=== PATIENT | female | born 1955 | race Caucasian/White ===

== ENCOUNTER 2016-09-02 09:14 | Outpatient (CLI) | payer OTHER ==
[~2016-09-02 09:14] MED LIST: ATENOLOL50 MG PO; COMPLERA; COZAAR50 MG PO; LEVAQUIN500 MG PO; MECLIZINE PO; [UNRECOGNIZED DRUG - OTHER] PO
--- NOTE | 2016-09-02 10:19 | DIAGNOSTIC IMAGING REPORT ---
PROCEDURE: XR CHEST 2 VIEW INDICATION: PRE OP TECHNIQUE: PA and lateral view. COMPARISON: Chest x-ray 08/21/2014 FINDINGS: Lungs are clear. Cardiovascular structures are normal. Bony thorax is unremarkable. IMPRESSION: 1. Negative chest.
== END 2016-09-02 23:00 ==
LOC: RT SRH 09:14
DX: Z01.818 Encounter for other preprocedural examination (principal); Z01.812 Encounter for preprocedural laboratory examination; Z01.810 Encounter for preprocedural cardiovascular examination; R00.1 Bradycardia, unspecified
CPT/HCPCS: 90004; 90074; 90100; 94060; 95059

== ENCOUNTER 2016-09-04 13:55 | Day surgery (SDC) | payer OTHER ==
--- NOTE | 2016-09-02 10:47 | HISTORY AND PHYSICAL ---
ADMITTED: 09/04/2016 CHIEF COMPLAINT: 1. Mass of the right long finger and trigger finger of the right long finger HISTORY OF PRESENT ILLNESS: This 61-year-old right-handed woman has had triggering of the right long finger for months on and off getting progressively worse now with locking occurring both during the day and at night. She also noted a mass about 4 mm across on the volar base of the finger. I had told her that the mass is likely benign and I could treat her trigger finger with a cortisone injection, but she said she wanted the mass removed and the trigger finger released at the same setting. She is pathologically frightened of having injections, but she said she can tolerate having an IV started. After explaining the risks and benefits of the surgical procedures of right long finger trigger finger release and excision of a mass of the right long finger, she consented to the procedure. MEDICAL/SURGICAL HISTORY: Past medical history: She has a history of hypertension on 4 medications. She has a history of hepatitis C, which was cured with treatment. She has a history of HIV, on which she has been stable without progression to AIDs and has been on the same medication Complera for at least the past 8 years. Past Surgical History: Includes the carpal tunnel release, bunion surgery, open reduction and internal fixation of the foot for fracture and the incision and drainage of a right distal forearm abscess in the past, and breast enhancement surgery. MEDICATIONS: 1. Amlodipine 5 mg daily. 2. Atenolol 50 mg daily. 3. Hydrochlorothiazide 25 mg daily. 4. Losartan 50 mg daily. 5. Complera 200 mg/25 mg/300 mg tablet daily. 6. Gabapentin 100 mg capsule at bedtime daily. 7. Aspirin 81 mg tablet daily. ALLERGIES: 1. SOCIAL HISTORY: FAMILY HISTORY: REVIEW OF SYSTEMS: She denies a history of seizure, stroke or syncope. She denies history of chest pain on exertion or irregular heartbeat or the need for heart surgery or having cardiac catheterization. She denies a history of congestive heart failure. She denies a history of tuberculosis or pneumonia. She denies a history of cirrhosis, although she had hepatitis C. Liver biopsies show stage II, hepatitis C has been stable. She denies history of peptic ulcer disease or colitis. She denies a history of kidney stones or kidney failure, or kidney infection. She denies a history of diabetes or thyroid disease. She denies a history of anemia or cancer. PHYSICAL EXAMINATION: GENERAL: Shows a well-nourished, well-developed woman in no acute distress. She is alert and oriented x3. NECK: Has no audible bruits and is painlessly supple. HEART: Without murmur, rub, or gallop. The rhythm is regular. LUNGS: Clear to auscultation with normal breath sounds. ABDOMEN: Without tenderness, masses, or organomegaly. EXTREMITIES: The right wrist has no swelling. There is a well-healed incision over the carpal tunnel. The distal half of the forearm has a volar scar of drainage of an abscess long ago, now well-healed without erythema and without draining sinus. The wrist has normal dorsiflexion, palmar flexion, supination and pronation. The right long finger has normal passive motion. There is a 4 mm mass on the volar surface of the right long finger at the level of the proximal flexion crease of the finger which is slightly mobile but seems attached to the flexor tendon sheath. The mass does not have a Tinel's sign. At this small size, it is hard to distinguish a fluctuant cyst from a solid mass. There is palpable and visible triggering of the finger and tenderness over the A1 aurelio of the flexor tendon sheath. IMPRESSION/PLAN: The patient understood the risks and benefits of the procedure and consented to the procedure of release of the right long trigger finger and excision of a mass of the right long finger.
[~2016-09-04] VITALS: Ht 175.3 cm; Wt 75.1 kg
--- NOTE | 2016-09-04 17:12 | Postoperative Progress Note ---
Postop Progress Note Preoperate Diagnosis: right long finger trigger finger, and mass right long tendon sheath Postoperative Diagnosis: same Surgeon: Henrry Weir MD Counter Help Surgeon: none Anesthesia: Conscious Sedation, [place] Block Findings: a ganglion cyst was growing on the flexor tendon sheath and was excised with a portion of the root on the flexor tendon sheath. Procedure: release of right long finger trigger finger and excision of ganglion cyst of tendon sheath Complications? No Condition: Good EBL: neglible Blood Administered: none Specimen(s) removed? Yes Specimen removed/disposition: portion of right long finger tendon sheath with ganglion cyst Grafts or Implants? No Graft/Implant type: none . (See nursing notes for details of grafts/implants)
[2016-09-04] MEDS ORDERED: OXYCODONE/ACETA1 TA1 PO (18:07)
--- NOTE | 2016-09-04 18:11 | Provider's Discharge Care Plan ---
Problem, Goal, Plan Problem List 1. Trigger finger of right hand Goals: Improve function Instructions: Follow up as directed, Take meds as directed 2. Ganglion cyst of flexor tendon sheath Goals: Improve function Instructions: Follow up as directed, Take meds as directed
[2016-09-04 18:30] VITALS: BP 119/80
--- NOTE | 2016-09-04 19:24 | OPERATIVE REPORT ---
DATE OF SURGERY: 09/04/2016 SURGEON: Henrry Weir MD PREOPERATIVE DIAGNOSIS: 1. Right long finger trigger finger and mass of the right long finger tendon sheath POSTOPERATIVE DIAGNOSIS: 1. Right long finger trigger finger and mass of the right long finger tendon sheath PROCEDURE PERFORMED: 1. Excision of mass of the right long finger tendon sheath and release of the right long finger trigger finger ANESTHESIA: IV block and conscious sedation. ESTIMATED BLOOD LOSS: Negligible. PATHOLOGY SPECIMEN: Ganglion cyst of tendon sheath with a portion of the tendon sheath itself. DRAINS: None. FLUIDS: Blood transfusion- None. COMPLICATIONS: None. SURGICAL TECHNIQUE: The patient was brought to the operating room, where an IV block was performed with IV lidocaine and the tourniquet was inflated to 275 mmHg. The arm was sterilely prepped, painted and draped. The incision for the trigger finger was marked off as a longitudinal incision from the distal flexion crease of the hand proximally over the tendon sheath for 1.5 cm. Skin was sharply divided with a knife and subcutaneous tissue dissected bluntly down to reveal the tendon sheath and the A1 aurelio. The A1 aurelio was cut under direct vision with a knife. Then attention was turned to the mass, which was distal to the proximal flexion crease of the long finger. An oblique incision was made across the flexion crease of the finger and skin hooks were used to elevate the subcutaneous tissue away from the digital nerves and tendon sheath. Then blunt dissection was used to outline the mass, which was apparently a ganglion cyst. The ganglion cyst was nicked to deflate it and this allowed greater visualization of the tissue behind the cyst. The cyst was lifted up with a hemostat and its root outlined on the tendon sheath. The affected tendon sheath was excised, removing the ganglion cyst. The wound was then closed with 5-0 interrupted nylon suture. Then 0.5% Marcaine 6 mL was injected around the incisions. A sterile dressing was placed upon the wound and the patient awakened and brought from the operating room in good condition.
== END 2016-09-04 21:50 | disposition home or self-care (01) ==
LOC: OR SRH 13:55 → SCU SRH 13:58 → OR SRH 15:30
PROVIDERS: Orthopaedic Surgery
PROC: 0LN70ZZ Release Right Hand Tendon, Open Approach (ICD-10-PCS; principal; 2016-09-04 15:30)
PROC: 0LB70ZZ Excision of Right Hand Tendon, Open Approach (ICD-10-PCS; principal; 2016-09-04 15:30)
DX: M65.331 Trigger finger, right middle finger (principal); M67.441 Ganglion, right hand; I10 Essential (primary) hypertension; Z72.0 Tobacco use; B20 Human immunodeficiency virus [HIV] disease; Z79.899 Other long term (current) drug therapy
CPT/HCPCS: 29229; 29240; 50004; 60001

== ENCOUNTER 2016-10-18 16:28 | Emergency (ER) | payer OTHER ==
[~2016-10-18 16:28] MED LIST changes: +OXYCODONE/ACETA1 TA1 PO
--- NOTE | 2016-10-18 17:18 | ED NURSING NOTES ---
Clinical Report - Nurses [facility] [address] [place] [address] 10/18/2016 16:29 Patient: FORTUNATO ARVIZU TRIAGE Acuity: LEVEL 3. Chief Complaint: MUSCLE ACHES. Alert. No acute distress. SEPSIS SCREEN: Sepsis Screen. Negative (no infection suspected/documented). --16:42 Kay Duenas R.N. 16:33 10/18/16. BP: 183/96. HR: 76. RR: 20. O2 saturation: 98% on room air. Temp: 98.8 F (oral). Pain level now: 01/11. --16:42 Kay Duenas R.N. Weight: 71.2 kg stated. Height/Length: 68 inches Per Patient. BMI: 23.9. --16:41 Kay Duenas R.N. Medications Atenolol Oral. --16:39 Kay Duenas R.N. Losartan Potassium Oral. --16:39 Kay Duenas R.N. AmLODIPine Besylate Oral. --16:40 Kay Duenas R.N. Medication/allergy information source: the patient. --16:42 Kay Duenas R.N. Allergies LIsinopril. (dry cough) --16:40 Kay Duenas R.N. Spironolactone. --16:41 Kay Duenas R.N. History Arrived by private vehicle. Historian: patient. Unaccompanied. Primary physician (Dr Praveen Garibay). Onset. (2 months ago). ( Pt reports pain that has moved from her hips to her knee to her elbow to her neck and now to her shoulder.). 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 PAST MEDICAL HX: The patient has had a hysterectomy. SOCIAL HX: Current every day light tobacco smoker (cigarette)- less than 1/2 a pack per day. Occasional alcohol use; consumes beer. No drug use. FALL RISK ASSESSMENT: Fall risk assessment completed. No fall risk identified. NUTRITIONAL RISK ASSESSMENT: The nutritional risk assessment revealed no deficiencies. FUNCTIONAL ASSESSMENT: Functional assessment: no impairments noted. LEARNING NEEDS ASSESSMENT: The learning needs assessment revealed no barriers. SKIN INTEGRITY ASSESSMENT: Skin integrity risk assessment completed. No skin integrity risk identified. --16:42 Kay Duenas R.N. PROBLEMS: Hepatitis. HIV Illness. Hypertension. --16:39 Kay Duenas R.N. ADDITIONAL SURGERIES: Breast Augmentation. Cystoscopy. Foot surgery. Hysterectomy. Oophorectomy. Tonsillectomy. --16:41 Kay Duenas R.N. Assessment GENERAL / NEURO / PSYCH: Alert. Oriented X 4. Appears in no acute distress. [place] Coma Scale: 15- eyes open spontaneously (4); best verbal response- oriented x 4 (5); best motor response- obeys commands (6). Patient appears calm and cooperative. RESPIRATORY: Respirations not labored. CVS: Capillary refill less than 2 seconds. GI / : Abdomen soft and nontender. SKIN: Mucous membranes are pink. Skin is warm and dry. --16:42 Kay Duenas R.N. Interventions ID band on patient. To treatment room. --16:42 Kay Duenas R.N. PHYSICAL ASSESSMENT 16:43 10/18/16. Ambulatory to room. GENERAL / NEURO / PSYCH: Alert. Oriented X 4. Appears in no acute distress. HEENT: Pupils equal, round and reactive to light. No facial asymmetry noted. Mucous membranes are pink. RESPIRATORY: Respirations not labored. CVS: Capillary refill less than 2 seconds. Pulses within normal limits. GI / : Abdomen soft and nontender. SKIN: Skin intact. Skin is warm and dry. Normal skin turgor. --16:43 Kay Duenas R.N. NURSING PROGRESS NOTES 16:43 10/18/16. Patient gowned. Two patient identifiers checked. Call light placed in reach. Side rails up x 1. Bed placed in lowest position. Brakes of bed on. Patient ready for evaluation- chart flagged and ED physician and COLLET MAKING MACHINE OPERATOR notified. --16:43 Kay Duenas R.N. 17:31 10/18/2016 Toradol (Ketorolac Tromethamine) IM 60 mg given. Given in the right gluteus ariane. Allergies verified and confirmed 5 rights. --17:31 Kay Duenas R.N. DISPOSITION / DISCHARGE Departure time: 17:55 Oct 18 2016. Condition at departure: improved and stable. No learning barriers present. Reviewed medication(s) side effects, precautions and dosing information. Prescription(s) given to the patient. Patient verbalized understanding. Written instructions provided in Yoruba. The patient was discharged by the nurse practitioner. She was discharged home. She left the Emergency Department ambulatory and via private vehicle. Patient driving. --18:28 Kay Duenas R.N. Locked/Released at 10/18/2016 18:28 by Kay Duenas R.N.
--- NOTE | 2016-10-18 17:18 | ED ORDER SUMMARY ---
..... Patient: FORTUNATO ARVIZU OrderSheet [facility] VisitID: [id number] [address] [place] [address] 61y, F Registration Date/Time: 10/18/2016 ORDER SHEET Weight: 71.2 kg (stated) Allergies: LIsinopril, Spironolactone GENERAL ORDERS: MEDICATION ORDERS: Toradol IM 60 mg (NOW) (17:11 10/18/2016 HBivens A.R.N.P.) (Ack 17:16 MWinterer R.N.) (17:31 MWinterer R.N.) IV FLUIDS: ORDER SHEET NOTES: [Electronically signed by Kay Duenas R.N. (18:28 10/18/2016)] [Electronically signed by Marissa Alvarado.R.N.P. (18:35 10/18/2016)] [Electronically locked/signed by Kay Duenas R.N. (18:28 10/18/2016)]
--- NOTE | 2016-10-18 17:18 | ED CLINICAL REPORT ---
Clinical Report - Physicians/Mid Levels [facility] [address] [place] [address] 10/18/2016 16:29 Patient: FORTUNATO ARVIZU Time Seen: 16:43; initial patient contact, initial documentation, patient care assumed. Arrived- By ambulance. Historian- patient. HISTORY OF PRESENT ILLNESS Chief Complaint: ( joint pain). At its maximum, severity described as severe. When seen in the E.D., severity described as severe. Modifying factors- worsened by movement. Not relieved by anything. This started about 2 months ago and is still present. It was abrupt in onset and has been intermittent. The patient has had muscle aches. (each episode is the same, joint swelling and pain, 1st episode was L knee, then R knee, then L hip, then R hip, then R elbow, and now R shoulder, states no one knows what it is, she wants more answers, she knows something is wrong, and she is hurting). Similar symptoms previously: Several times. ( this is 5th episode). Recent medical care: The patient was seen recently in the office and a clinic. ( says she went to [facility] and they told her we don't know what is wrong, gave rx nsaid, and no better, went to her infectious disease dr who does her blood work for hiv, and he did xrays of her hips and she has pending bone scan for osteopenia). REVIEW OF SYSTEMS No fever, difficulty breathing, chest pain or abdominal pain. No difficulty with ambulation. All systems otherwise negative, except as recorded above. PAST HISTORY See nurses notes. PROBLEMS: Hepatitis. HIV Illness. Hypertension. --16:39 Kay Duenas R.N. ADDITIONAL SURGERIES: Breast Augmentation. Cystoscopy. Foot surgery. Hysterectomy. Oophorectomy. Tonsillectomy. --16:41 Kay Duenas R.N. SOCIAL HISTORY Light tobacco smoker. Occasional alcohol use. No drug use. No recent travel. Is a local resident. FAMILY HISTORY Negative. ADDITIONAL NOTES The nursing notes have been reviewed with agreement regarding the chief complaint, HPI, ROS, PMH and patient medications and allergies. PHYSICAL EXAM Vital Signs: 10/18/2016 16:33 BP: 183/96. HR: 76. RR: 20. O2 saturation: 98%. Temp: 98.8 F. Pain level now: 910. Have been reviewed as abnormal and appear to be correct. Hypertensive. Heart rate normal. Respiratory rate normal. Temperature normal. Oxygen saturation normal. Appearance: Alert. No acute distress. Anxious. (and tearful at times). Eyes: Pupils equal, round and reactive to light. Eyes normal inspection. Neck: Abnormal inspection. Neck supple. (tender in soft tissue on R side when palpating lymph nodes). CVS: Normal heart rate and rhythm. Heart sounds normal. Pulses normal. Respiratory: No respiratory distress. Breath sounds normal. Chest nontender. Abdomen: No visible injury. Soft and nontender. Back: Normal inspection. Skin: Skin warm and dry. Normal skin color. No rash. Normal skin turgor. Extremities: Extremities exhibit normal ROM. No lower extremity edema. Neuro: Oriented X 3. No motor deficit. No sensory deficit. PROGRESS AND PROCEDURES Course of Care: lymph nodes checked in anterior and posterior cervical chains, pre and post auricular, submental and submandibular, axilla, & subclavian, no swelling or tenderness anywhere 17:18 10/18/16. pt has bart for some narcs, nothing alarming, see report for full details. Patient counseled in person regarding the patient's stable condition and diagnosis. Differential Diagnosis: Other possible considerations: oa, osteopenia, ra, auto immune disorder, ca, lupus, psychogenic, gout. Above considerations are based on history and physical exam. Differential diagnosis was discussed with patient. Disposition: Discharged home in good and improved condition (17:18). Condition: good and stable. CLINICAL IMPRESSION Acute pain in the neck and right upper extremity (shoulder). INSTRUCTIONS Warnings: GENERAL WARNINGS: Return or contact your physician immediately if your condition worsens or changes unexpectedly, if not improving as expected, or if other problems arise. Specifically return if problem worsens. Prescription Medications: Indocin 25 mg capsules: Take 1 capsule orally every 8 hours as needed. Dispense twenty (20). No refills. Substitution is permissible. [place] 5 mg / 325 mg tablets: take 1 to 2 orally every 6 hours as needed for pain. Dispense fifteen (15). No refills. Substitution is permissible. Follow-up: Follow up with a specialist Security Sergeant in about three days as needed. Call for an appointment. Summary of care provided to patient. Understanding of the discharge instructions verbalized by patient. (Electronically signed by Marissa Alvarado A.R.N.P. 10/18/2016 18:35)
--- NOTE | 2016-10-18 17:18 | ED ORDER SUMMARY ---
..... Patient: FORTUNATO ARVIZU OrderSheet [facility] VisitID: [id number] [address] [place] [address] 61y, F Registration Date/Time: 10/18/2016 ORDER SHEET Weight: 71.2 kg (stated) Allergies: LIsinopril, Spironolactone GENERAL ORDERS: MEDICATION ORDERS: Toradol IM 60 mg (NOW) (17:11 10/18/2016 HBivens A.R.N.P.) (Ack 17:16 MWinterer R.N.) (17:31 MWinterer R.N.) IV FLUIDS: ORDER SHEET NOTES: [Electronically signed by Kay Duenas R.N. (18:28 10/18/2016)] [Electronically signed by Marissa Alvarado.R.N.P. (18:35 10/18/2016)] [Electronically locked/signed by Kay Duenas R.N. (18:28 10/18/2016)]
--- NOTE | 2016-10-18 17:18 | ED NURSING NOTES ---
Clinical Report - Nurses [facility] [address] [place] [address] 10/18/2016 16:29 Patient: FORTUNATO ARVIZU TRIAGE Acuity: LEVEL 3. Chief Complaint: MUSCLE ACHES. Alert. No acute distress. SEPSIS SCREEN: Sepsis Screen. Negative (no infection suspected/documented). --16:42 Kay Duenas R.N. 16:33 10/18/16. BP: 183/96. HR: 76. RR: 20. O2 saturation: 98% on room air. Temp: 98.8 F (oral). Pain level now: 01/11. --16:42 Kay Duenas R.N. Weight: 71.2 kg stated. Height/Length: 68 inches Per Patient. BMI: 23.9. --16:41 Kay Duenas R.N. Medications Atenolol Oral. --16:39 Kay Duenas R.N. Losartan Potassium Oral. --16:39 Kay Duenas R.N. AmLODIPine Besylate Oral. --16:40 Kya Duenas R.N. Medication/allergy information source: the patient. --16:42 Kay Duenas R.N. Allergies LIsinopril. (dry cough) --16:40 Kay Duenas R.N. Spironolactone. --16:41 Kay Duenas R.N. History Arrived by private vehicle. Historian: patient. Unaccompanied. Primary physician (Dr Praveen Garibay). Onset. (2 months ago). ( Pt reports pain that has moved from her hips to her knee to her elbow to her neck and now to her shoulder.). 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 PAST MEDICAL HX: The patient has had a hysterectomy. SOCIAL HX: Current every day light tobacco smoker (cigarette)- less than 1/2 a pack per day. Occasional alcohol use; consumes beer. No drug use. FALL RISK ASSESSMENT: Fall risk assessment completed. No fall risk identified. NUTRITIONAL RISK ASSESSMENT: The nutritional risk assessment revealed no deficiencies. FUNCTIONAL ASSESSMENT: Functional assessment: no impairments noted. LEARNING NEEDS ASSESSMENT: The learning needs assessment revealed no barriers. SKIN INTEGRITY ASSESSMENT: Skin integrity risk assessment completed. No skin integrity risk identified. --16:42 Kay Duenas R.N. PROBLEMS: Hepatitis. HIV Illness. Hypertension. --16:39 Kay Duenas R.N. ADDITIONAL SURGERIES: Breast Augmentation. Cystoscopy. Foot surgery. Hysterectomy. Oophorectomy. Tonsillectomy. --16:41 Kay Duenas R.N. Assessment GENERAL / NEURO / PSYCH: Alert. Oriented X 4. Appears in no acute distress. [place] Coma Scale: 15- eyes open spontaneously (4); best verbal response- oriented x 4 (5); best motor response- obeys commands (6). Patient appears calm and cooperative. RESPIRATORY: Respirations not labored. CVS: Capillary refill less than 2 seconds. GI / : Abdomen soft and nontender. SKIN: Mucous membranes are pink. Skin is warm and dry. --16:42 Kay Duenas R.N. Interventions ID band on patient. To treatment room. --16:42 Kay Duenas R.N. PHYSICAL ASSESSMENT 16:43 10/18/16. Ambulatory to room. GENERAL / NEURO / PSYCH: Alert. Oriented X 4. Appears in no acute distress. HEENT: Pupils equal, round and reactive to light. No facial asymmetry noted. Mucous membranes are pink. RESPIRATORY: Respirations not labored. CVS: Capillary refill less than 2 seconds. Pulses within normal limits. GI / : Abdomen soft and nontender. SKIN: Skin intact. Skin is warm and dry. Normal skin turgor. --16:43 Kay Duenas R.N. NURSING PROGRESS NOTES 16:43 10/18/16. Patient gowned. Two patient identifiers checked. Call light placed in reach. Side rails up x 1. Bed placed in lowest position. Brakes of bed on. Patient ready for evaluation- chart flagged and ED physician and CARD WRITER HAND notified. --16:43 Kay Duenas R.N. 17:31 10/18/2016 Toradol (Ketorolac Tromethamine) IM 60 mg given. Given in the right gluteus ariane. Allergies verified and confirmed 5 rights. --17:31 Kay Duenas R.N. DISPOSITION / DISCHARGE Departure time: 17:55 Oct 18 2016. Condition at departure: improved and stable. No learning barriers present. Reviewed medication(s) side effects, precautions and dosing information. Prescription(s) given to the patient. Patient verbalized understanding. Written instructions provided in Nepali. The patient was discharged by the nurse practitioner. She was discharged home. She left the Emergency Department ambulatory and via private vehicle. Patient driving. --18:28 Kay Duenas R.N. Locked/Released at 10/18/2016 18:28 by aKy Duenas R.N.
--- NOTE | 2016-10-18 17:18 | ED CLINICAL REPORT ---
Clinical Report - Physicians/Mid Levels [facility] [address] [place] [address] 10/18/2016 16:29 Patient: FORTUNATO ARVIZU Time Seen: 16:43; initial patient contact, initial documentation, patient care assumed. Arrived- By ambulance. Historian- patient. HISTORY OF PRESENT ILLNESS Chief Complaint: ( joint pain). At its maximum, severity described as severe. When seen in the E.D., severity described as severe. Modifying factors- worsened by movement. Not relieved by anything. This started about 2 months ago and is still present. It was abrupt in onset and has been intermittent. The patient has had muscle aches. (each episode is the same, joint swelling and pain, 1st episode was L knee, then R knee, then L hip, then R hip, then R elbow, and now R shoulder, states no one knows what it is, she wants more answers, she knows something is wrong, and she is hurting). Similar symptoms previously: Several times. ( this is 5th episode). Recent medical care: The patient was seen recently in the office and a clinic. ( says she went to [facility] and they told her we don't know what is wrong, gave rx nsaid, and no better, went to her infectious disease dr who does her blood work for hiv, and he did xrays of her hips and she has pending bone scan for osteopenia). REVIEW OF SYSTEMS No fever, difficulty breathing, chest pain or abdominal pain. No difficulty with ambulation. All systems otherwise negative, except as recorded above. PAST HISTORY See nurses notes. PROBLEMS: Hepatitis. HIV Illness. Hypertension. --16:39 Kay Duenas R.N. ADDITIONAL SURGERIES: Breast Augmentation. Cystoscopy. Foot surgery. Hysterectomy. Oophorectomy. Tonsillectomy. --16:41 Kay Duenas R.N. SOCIAL HISTORY Light tobacco smoker. Occasional alcohol use. No drug use. No recent travel. Is a local resident. FAMILY HISTORY Negative. ADDITIONAL NOTES The nursing notes have been reviewed with agreement regarding the chief complaint, HPI, ROS, PMH and patient medications and allergies. PHYSICAL EXAM Vital Signs: 10/18/2016 16:33 BP: 183/96. HR: 76. RR: 20. O2 saturation: 98%. Temp: 98.8 F. Pain level now: 910. Have been reviewed as abnormal and appear to be correct. Hypertensive. Heart rate normal. Respiratory rate normal. Temperature normal. Oxygen saturation normal. Appearance: Alert. No acute distress. Anxious. (and tearful at times). Eyes: Pupils equal, round and reactive to light. Eyes normal inspection. Neck: Abnormal inspection. Neck supple. (tender in soft tissue on R side when palpating lymph nodes). CVS: Normal heart rate and rhythm. Heart sounds normal. Pulses normal. Respiratory: No respiratory distress. Breath sounds normal. Chest nontender. Abdomen: No visible injury. Soft and nontender. Back: Normal inspection. Skin: Skin warm and dry. Normal skin color. No rash. Normal skin turgor. Extremities: Extremities exhibit normal ROM. No lower extremity edema. Neuro: Oriented X 3. No motor deficit. No sensory deficit. PROGRESS AND PROCEDURES Course of Care: lymph nodes checked in anterior and posterior cervical chains, pre and post auricular, submental and submandibular, axilla, & subclavian, no swelling or tenderness anywhere 17:18 10/18/16. pt has bart for some narcs, nothing alarming, see report for full details. Patient counseled in person regarding the patient's stable condition and diagnosis. Differential Diagnosis: Other possible considerations: oa, osteopenia, ra, auto immune disorder, ca, lupus, psychogenic, gout. Above considerations are based on history and physical exam. Differential diagnosis was discussed with patient. Disposition: Discharged home in good and improved condition (17:18). Condition: good and stable. CLINICAL IMPRESSION Acute pain in the neck and right upper extremity (shoulder). INSTRUCTIONS Warnings: GENERAL WARNINGS: Return or contact your physician immediately if your condition worsens or changes unexpectedly, if not improving as expected, or if other problems arise. Specifically return if problem worsens. Prescription Medications: Indocin 25 mg capsules: Take 1 capsule orally every 8 hours as needed. Dispense twenty (20). No refills. Substitution is permissible. [place] 5 mg / 325 mg tablets: take 1 to 2 orally every 6 hours as needed for pain. Dispense fifteen (15). No refills. Substitution is permissible. Follow-up: Follow up with a specialist Shipping Clerk Crating in about three days as needed. Call for an appointment. Summary of care provided to patient. Understanding of the discharge instructions verbalized by patient. (Electronically signed by Marissa Alvarado A.R.N.P. 10/18/2016 18:35)
--- NOTE | 2016-10-18 18:36 | ED MAR SUMMARY ---
..... Medication Administration Record [facility] [address] [place] [address] Patient: FORTUNATO ARVIZU Visit ID: [id number] 61y, F Weight: 71.2 kg Height/Length: 68 in BMI: 23.9 ALLERGIES: Spironolactone, LIsinopril Given 17:31 10/18/2016 Kay Dueans R.N. Medication Administered: TORADOL [IM] (KETOROLAC TROMETHAMINE), Dose: 60 mg IM. Medication Ordered: Toradol IM 60 mg (NOW).
--- NOTE | 2016-10-18 18:36 | ED MED RECONCILIATION SUMMARY ---
Patient: FORTUNATO ARVIZU Medication Reconciliation Report [facility] VisitID: [id number] [place] [address] 61y, F Registration Date/Time: 10/18/2016 Weight: 71.2 kg Height/Length: 68 in. BMI: 23.9 ALLERGIES: LIsinopril, Spironolactone The patient's Home Medications are listed below: THE FOLLOWING MEDICATIONS NEED TO BE RECONCILED: AmLODIPine Besylate Oral Atenolol Oral Losartan Potassium Oral The source(s) of the original Home Medication information: patient The following Medications were given to the patient in the Emergency Department: Toradol [IM] IM 60 mg, administered: 10/18/2016 5:31:00 PM The following Medications were prescribed to the patient: Indocin 25 mg capsules: Take 1 capsule orally every 8 hours as needed. Dispense twenty (20). No refills. Substitution is permissible. -- Marissa Alvarado A.R.N.P. [place] 5 mg / 325 mg tablets: take 1 to 2 orally every 6 hours as needed for pain. Dispense fifteen (15). No refills. Substitution is permissible. -- Marissa Alvarado A.R.N.P.
--- NOTE | 2016-10-18 18:36 | ED MAR SUMMARY ---
..... Medication Administration Record [facility] [address] [place] [address] Patient: FORTUNATO ARVIZU Visit ID: [id number] 61y, F Weight: 71.2 kg Height/Length: 68 in BMI: 23.9 ALLERGIES: Spironolactone, LIsinopril Given 17:31 10/18/2016 Kay Duenas R.N. Medication Administered: TORADOL [IM] (KETOROLAC TROMETHAMINE), Dose: 60 mg IM. Medication Ordered: Toradol IM 60 mg (NOW).
--- NOTE | 2016-10-18 18:36 | ED DISCHARGE INSTRUCTIONS ---
Patient: FORTUNATO ARVIZU General Instructions [facility] VisitID: [id number] [place] [address] 61y, F Registration Date/Time: 10/18/2016 Acute pain in the neck and right upper extremity (shoulder). INSTRUCTIONS Warnings: GENERAL WARNINGS: Return or contact your physician immediately if your condition worsens or changes unexpectedly, if not improving as expected, or if other problems arise. Specifically return if problem worsens. Prescription Medications: Indocin 25 mg capsules: Take 1 capsule orally every 8 hours as needed. Dispense twenty (20). No refills. Substitution is permissible. [place] 5 mg / 325 mg tablets: take 1 to 2 orally every 6 hours as needed for pain. Dispense fifteen (15). No refills. Substitution is permissible. Follow-up: Follow up with a specialist Pressure Dispatcher in about three days as needed. Call for an appointment. Summary of care provided to patient. Understanding of the discharge instructions verbalized by patient. ADDITIONAL INFORMATION Pain, Uncertain Cause [Acute] Pain is the bodys way of calling attention to a problem. Pain can be caused by many conditions - some minor, some serious. In your case, we were not able to find the exact cause for your pain. However, at this time there is no sign of any serious or life-threatening illness causing your pain. Sometimes more tests will be needed to determine the cause. Other times, just allowing more time to pass will either make it clear what the problem is, or the pain will go away by itself. Home Care: You may use acetaminophen (Tylenol) or ibuprofen (Motrin, Advil) to control pain, unless another medicine was prescribed. [NOTE: If you have chronic liver or kidney disease or ever had a stomach ulcer or GI bleeding, talk with your doctor before using these medicines.] Follow Up with your doctor or as advised by our staff. Get Prompt Medical Attention if any of the following occur: Changes in the pattern of your pain Appearance of new symptoms Fever of 100.4F (38C) or higher, or as directed by your healthcare provider Myositis Myositis is a class of rare auto-immune diseases that cause chronic inflammation. These include Polymyositis, which affects muscles throughout the body, and Dermatomyositis, which affects both skin and muscle. Other forms can affect the joints, heart, lungs and intestines. This condition can be hard to diagnose, because it resembles other diseases. Immune cells in the body usually attack and destroy viruses and harmful bacteria. In myositis, for unknown reasons, the immune system begins attacking the skin and/or muscles. Sometimes other parts of the body are also affected. Myositis may be triggered by exposure to certain chemicals, drugs, or viruses. It is important that you tell your doctor about any [id number] drug use, infection, or exposure to other substances that occurred near the time when your symptoms started. Stopping the exposure or treating the infection may stop myositis. The symptoms of myositis can be very different depending on the type you have. Common symptoms are muscle weakness (especially muscles of the hips and shoulders), loss of energy (fatigue), rash or changes in the skin, and arthritis (swollen, painful joints). You may have trouble climbing stairs, getting out of chairs, lifting heavy things, or raising your arms overhead. Sometimes the muscles ache and become tender. The swallowing muscles may also be affected. The disease usually starts slowly and may take months or years to develop. You may notice that you have periods when your symptoms get worse (active disease) followed by periods where symptoms get better or go away completely (remission). Treatment options include medication, rest, physical therapy and exercise. Your doctor may prescribe oral steroids or drugs that suppress the immune system in order to slow down the progress of the disease. Home Care: If you were prescribed a medication, take it as directed. You may use acetaminophen (Tylenol) or ibuprofen (Motrin, Advil) to control pain, unless another medicine was prescribed. [NOTE: If you have chronic liver or kidney disease or ever had a stomach ulcer or GI bleeding, talk with your doctor before using these medicines.] Dont take ibuprofen or other NSAIDs (non-steroidal anti-inflammatory drugs) if you were prescribed prednisone. Remain physically active. Light exercise and physical activity are helpful to keep your muscles in the best shape possible. Talk to your doctor about an exercise plan that is right for you. If you are having muscle aches, rest as needed. Follow Up with your doctor or as advised by our staff. For more information contact: Myositis Association, www.myositis.org Arth[employer] [phone], www.arthritis.org Return Promptly or contact your doctor if any of the following occur: Change in bowel or bladder habits Blood in the stool (black or red color) Unexpected weight loss A lump in the breast or elsewhere Difficulty swallowing Change in the appearance of a wart or mole Persistent cough, hoarseness or coughing up blood Night sweats or unexplained fevers Shortness of breath Arthralgia Arthralgia is the term for pain in or around the joint. It is not a disease but a symptom. This may involve one or more joints. Sometimes arthralgias move from joint to joint. There are many causes for joint pain. These include: Injury Osteoarthritis (from wearing out of the joint surface) Rheumatoid arthritis (an autoimmune disease) Gout (inflammation of the joint due to crystals in the joint fluid) Infection inside the joint Bursitis (inflammation of the fluid-filled sacs around the joint) Lupus and other collagen-vascular disease Home Care: Rest the involved joint(s) until your symptoms improve. You may use acetaminophen (Tylenol) or ibuprofen (Motrin, Advil) to control pain, unless another pain medicine was prescribed. [NOTE: If you have chronic liver or kidney disease or ever had a stomach ulcer or GI bleeding, talk with your doctor before using these medicines.] Follow Up with your doctor or as advised by our staff. [NOTE: If you had an X-ray it will be reviewed by a specialist. You will be notified of any new findings that may affect your care.] Return Promptly or contact your doctor if any of the following occurs: Pain increases Pain moves to other joints New rash appears Fever of 100.4F (38C) or higher, or as directed by your healthcare provider Indomethacin Oral capsule What is this medicine? INDOMETHACIN (in williamson METH a sin) is a non-steroidal anti-inflammatory drug (NSAID). It is used to reduce swelling and to treat pain. It may be used for painful joint and muscular problems such as arthritis, tendinitis, bursitis, and gout. How should I use this medicine? Take this medicine by mouth with food and with a full glass of water. Follow the directions on the prescription label. Take your medicine at regular intervals. Do not take your medicine more often than directed. Long-term, continuous use may increase the risk of heart attack or stroke. A special MedGuide will be given to you by the pharmacist with each prescription and refill. Be sure to read this information carefully each time. Talk to your data modeling specialist regarding the use of this medicine in children. Special care may be needed. While this drug may be prescribed for children as young as 15 years for selected conditions, precautions do apply. Elderly patients over 65 years old may have a stronger reaction and need a smaller dose. What side effects may I notice from receiving this medicine? Side effects that you should report to your doctor or health long term care administrator as soon as possible: allergic reactions like skin rash, itching or hives, swelling of the face, lips, or tongue black or bloody stools, blood in the urine or vomit blurred vision chest pain difficulty breathing or wheezing nausea or vomiting slurred speech or weakness on one side of the body unexplained weight gain or swelling unusually weak or tired yellowing of eyes or skin Side effects that usually do not require medical attention (report to your doctor or health long term care administrator if they continue or are bothersome): diarrhea dizziness headache heartburn What may interact with this medicine? Do not take this medicine with any of the following medications: cidofovir diflunisal ketorolac methotrexate pemetrexed triamterene This medicine may also interact with the following medications: alcohol antacids aspirin and aspirin-like medicines cyclosporine digoxin diuretics lithium medicines for diabetes medicines for high blood pressure medicines that affect platelets medicines that treat or prevent blood clots like warfarin NSAIDs, medicines for pain and inflammation, like ibuprofen or naproxen probenecid steroid medicines like prednisone or cortisone What if I miss a dose? If you miss a dose, take it as soon as you can. If it is almost time for your next dose, take only that dose. Do not take double or extra doses. Where should I keep my medicine? Keep out of the reach of children. Store at room temperature between 15 and 30 degrees C (59 and 86 degrees F). Keep container tightly closed. Throw away any unused medicine after the expiration date. What should I tell my health care provider before I take this medicine? They need to know if you have any of these conditions: asthma, especially aspirin sensitive asthma coronary artery bypass graft (CABG) surgery within the past 2 weeks depression drink more than 3 alcohol containing drinks a day heart disease or circulation problems like heart failure or leg edema (fluid retention) high blood pressure kidney disease liver disease Parkinson's disease seizures stomach bleeding or ulcers an unusual or allergic reaction to indomethacin, aspirin, other NSAIDs, other medicines, foods, dyes, or preservatives or trying to get breast-feeding What should I watch for while using this medicine? Tell your doctor or health long term care administrator if your pain does not get better. Talk to your doctor before taking another medicine for pain. Do not treat yourself. This medicine does not prevent heart attack or stroke. In fact, this medicine may increase the chance of a heart attack or stroke. The chance may increase with longer use of this medicine and in people who have heart disease. If you take aspirin to prevent heart attack or stroke, talk with your doctor or health long term care administrator. Do not take medicines such as ibuprofen and naproxen with this medicine. Side effects such as stomach upset, nausea, or ulcers may be more likely to occur. Many medicines available without a prescription should not be taken with this medicine. This medicine can cause ulcers and bleeding in the stomach and intestines at any time during treatment. Do not smoke cigarettes or drink alcohol. These increase irritation to your stomach and can make it more susceptible to damage from this medicine. Ulcers and bleeding can happen without warning symptoms and can cause . You may get drowsy or dizzy. Do not drive, use machinery, or do anything that needs mental alertness until you know how this medicine affects you. Do not stand or sit up quickly, especially if you are an older patient. This reduces the risk of dizzy or fainting spells. This medicine can cause you to bleed more easily. Try to avoid damage to your teeth and gums when you brush or floss your teeth. Hydrocodone Bitartrate, Acetaminophen Oral tablet What is this medicine? ACETAMINOPHEN; HYDROCODONE (a set a MOISÉS mee fen; regino droe KOE done) is a pain reliever. It is used to treat mild to moderate pain. How should I use this medicine? Take this medicine by mouth. Swallow it with a full glass of water. Follow the directions on the prescription label. If the medicine upsets your stomach, take the medicine with food or milk. Do not take more than you are told to take. Talk to your data modeling specialist regarding the use of this medicine in children. This medicine is not approved for use in children. What side effects may I notice from receiving this medicine? Side effects that you should report to your doctor or health long term care administrator as soon as possible: allergic reactions like skin rash, itching or hives, swelling of the face, lips, or tongue breathing problems confusion feeling faint or lightheaded, falls stomach pain yellowing of the eyes or skin Side effects that usually do not require medical attention (report to your doctor or health long term care administrator if they continue or are bothersome): nausea, vomiting stomach upset What may interact with this medicine? alcohol antihistamines isoniazid medicines for depression, anxiety, or psychotic disturbances medicines for sleep muscle relaxants naltrexone narcotic medicines (opiates) for pain phenobarbital ritonavir tramadol What if I miss a dose? If you miss a dose, take it as soon as you can. If it is almost time for your next dose, take only that dose. Do not take double or extra doses. Where should I keep my medicine? Keep out of the reach of children. This medicine can be abused. Keep your medicine in a safe place to protect it from theft. Do not share this medicine with anyone. Selling or giving away this medicine is dangerous and against the law. Store at room temperature between 15 and 30 degrees C (59 and 86 degrees F). Protect from light. Keep container tightly closed. Throw away any unused medicine after the expiration date. Discard unused medicine and used packaging carefully. Pets and children can be harmed if they find used or lost packages. What should I tell my health care provider before I take this medicine? They need to know if you have any of these conditions: brain tumor Crohn's disease, inflammatory bowel disease, or ulcerative colitis drink more than 3 alcohol-containing drinks per day drug abuse or addiction head injury heart or circulation problems kidney disease or problems going to the bathroom liver disease lung disease, asthma, or breathing problems an unusual or allergic reaction to acetaminophen, hydrocodone, other opioid analgesics, other medicines, foods, dyes, or preservatives or trying to get breast-feeding What should I watch for while using this medicine? Tell your doctor or health long term care administrator if your pain does not go away, if it gets worse, or if you have new or a different type of pain. You may develop tolerance to the medicine. Tolerance means that you will need a higher dose of the medicine for pain relief. Tolerance is normal and is expected if you take the medicine for a long time. Do not suddenly stop taking your medicine because you may develop a severe reaction. Your body becomes used to the medicine. This does NOT mean you are addicted. Addiction is a behavior related to getting and using a drug for a non-medical reason. If you have pain, you have a medical reason to take pain medicine. Your doctor will tell you how much medicine to take. If your doctor wants you to stop the medicine, the dose will be slowly lowered over time to avoid any side effects. You may get drowsy or dizzy when you first start taking the medicine or change doses. Do not drive, use machinery, or do anything that may be dangerous until you know how the medicine affects you. Stand or sit up slowly. There are different types of narcotic medicines (opiates) for pain. If you take more than one type at the same time, you may have more side effects. Give your health care provider a list of all medicines you use. Your doctor will tell you how much medicine to take. Do not take more medicine than directed. Call emergency for help if you have problems breathing. The medicine will cause constipation. Try to have a bowel movement at least every 2 to 3 days. If you do not have a bowel movement for 3 days, call your doctor or health long term care administrator. Too much acetaminophen can be very dangerous. Do not take Tylenol (acetaminophen) or medicines that contain acetaminophen with this medicine. Many non-prescription medicines contain acetaminophen. Always read the labels carefully. You have been given the following additional information: Pain, Uncertain Cause (Acute) Myositis Arthralgia Indomethacin Oral capsule Hydrocodone Bitartrate, Acetaminophen Oral tablet (Electronically signed by Marissa Alvarado A.R.N.P. 10/18/2016 18:35)
--- NOTE | 2016-10-18 18:36 | ED MED RECONCILIATION SUMMARY ---
Patient: FORTUNATO ARVIZU Medication Reconciliation Report [facility] VisitID: [id number] [place] [address] 61y, F Registration Date/Time: 10/18/2016 Weight: 71.2 kg Height/Length: 68 in. BMI: 23.9 ALLERGIES: LIsinopril, Spironolactone The patient's Home Medications are listed below: THE FOLLOWING MEDICATIONS NEED TO BE RECONCILED: AmLODIPine Besylate Oral Atenolol Oral Losartan Potassium Oral The source(s) of the original Home Medication information: patient The following Medications were given to the patient in the Emergency Department: Toradol [IM] IM 60 mg, administered: 10/18/2016 5:31:00 PM The following Medications were prescribed to the patient: Indocin 25 mg capsules: Take 1 capsule orally every 8 hours as needed. Dispense twenty (20). No refills. Substitution is permissible. -- Marissa Alvarado A.R.N.P. Cranberry 5 mg / 325 mg tablets: take 1 to 2 orally every 6 hours as needed for pain. Dispense fifteen (15). No refills. Substitution is permissible. -- Marissa Alvarado A.R.N.P.
== END 2016-10-18 17:55 | disposition home or self-care (01) ==
LOC: ED SRH 16:28
DX: M25.511 Pain in right shoulder (principal); M54.2 Cervicalgia; I10 Essential (primary) hypertension; Z79.899 Other long term (current) drug therapy; F17.210 Nicotine dependence, cigarettes, uncomplicated; Z88.8 Allergy status to other drugs, medicaments and biological substances

== ENCOUNTER 2016-10-22 10:25 | Outpatient (CLI) | payer OTHER ==
--- NOTE | 2016-10-22 11:25 | DIAGNOSTIC IMAGING REPORT ---
PROCEDURE: DEXA BONE DENSITY STUDY CLINICAL INDICATION: OSTEOPENIA COMPARISON: None. FINDINGS: LUMBAR SPINE: Bone mineral density 0.828 g/cm2, T score -2.0 osteopenia LEFT HIP: Bone mineral density 0.682 g/cm2, T score -2.1 osteopenia LEFT FEMORAL NECK: Bone mineral density 0.673 g/cm2, T score -1.6 osteopenia FRACTURE RISK CALCULATION ( when applicable): 10-year fracture risk of a major osteoporotic fracture 7.9% and of a hip fracture 1.2% (T score greater or equal to -1.0 to: NORMAL) (T score from -1.1 to -2.4: OSTEOPENIA) (T score ess than or equal to -2.5: OSTEOPOROSIS) IMPRESSION: 1. Osteopenia spine hip and femoral neck with a 10-year fracture risk of 7.9% and a hip fracture risk of 1.2%
== END 2016-10-22 23:00 | disposition home or self-care (01) ==
LOC: XR SRH 10:25
DX: M85.80 Other specified disorders of bone density and structure, unspecified site (principal)